=== PATIENT | male | born 1955 | race Caucasian/White ===

== ENCOUNTER 2017-06-10 21:57 | Observation (INO) ==
--- NOTE | 2017-06-10 23:33 | Emergency Department Note ---
SOB HPI - General Chief Complaint: Shortness of Breath/Dyspnea Stated Complaint: Breathing Difficulty Time Seen by Provider: 06/10/17 22:05 Mode of arrival: ambulatory - History of Present Illness Lung biopsy earlier today. Presents with sudden sharp right chest pain and shortness of breath. Severe, worse with movement and inspiration. No comfortable position. - Related Data Home Medications Medication Instructions Recorded Confirmed clotrimazole 10 mg kwesi 10 mg MUCOUS MEM TID 07/06/15 06/10/17 fentanyl 50 mcg/hr transdermal 1 patch TRANSDERMA Q24H patch 07/06/15 06/10/17 patch fluticasone 50 mcg/actuation nasal 1 spray INTRANASAL QDAY 07/06/15 06/10/17 spray,suspension food supplement, lactose-reduced 1 each PO .QOD ml 07/06/15 06/10/17 0.05 gram-1.5 kcal/mL oral liquid rutnqi-hgrlorgw-jrfhgem cap PO 07/06/15 07/06/15 5,000-17,000-27,000 unit capsule,delayed rel nystatin 100,000 unit/mL oral 4 ml BUCCAL QID ml 07/06/15 06/10/17 suspension omeprazole 40 mg capsule,delayed 40 mg PO QDAY 07/06/15 06/10/17 release oxycodone-acetaminophen 5 mg-325 1 tab PO Q6H 07/06/15 06/10/17 mg tablet sucralfate 1 gram tablet 1 g PO QID 07/06/15 06/10/17 testosterone 1 % (50 mg/5 gram) 2 packet TRANSDERMA QAM 07/06/15 06/10/17 transdermal gel packet magnesium oxide 400 mg capsule 400 mg PO QDAY 06/20/16 06/10/17 megestrol 400 mg/10 mL (40 mg/mL) 400 mg PO QDAY ml 06/20/16 06/10/17 oral suspension meloxicam 7.5 mg tablet 7.5 mg PO QDAY 06/20/16 06/10/17 triamcinolone acetonide 0.1 % 1 applic TOPICAL QDAY 06/20/16 06/10/17 topical cream Previous Rx's Medication Instructions Recorded Enoxaparin [Lovenox] 60 mg SQ BID #20 syringe 06/09/17 Allergies Allergy/AdvReac Type Severity Reaction Status Date / Time No Known Drug Allergies Allergy Verified 06/10/17 09:17 Review of Systems All systems ED: reviewed and negative except as stated. Past Medical History - Past Medical History Attestation: Yes: The following information was validated with the patient. Medical history: Reports: other (Lung tumor with active workup). Denies: cancer , CVA, hypertension, myocardial infarction, thyroid disease - Social History smoking status: Never smoker Alcohol use: Reports: None Drug use: Reports: none. Denies: marijuana Physical Exam Limitations: no limitations General appearance: alert, anxious, cachectic, in distress Head: atraumatic Eye: Present: normal appearance ENT: normal exam Neck: Present: normal inspection, trachea midline. Absent: lymphadenopathy Chest: Present: normal inspection. Absent: symmetric chest wall rise Respiratory: Present: other (dimished breath sounds on the right) Course Vital Signs Temperature 97.6 F 06/10/17 21:58 Pulse Rate 88 06/10/17 21:58 Respiratory Rate 26 H 06/10/17 21:58 Blood Pressure 139/87 06/10/17 21:58 Pulse Oximetry (%) 100 06/10/17 21:58 Temperature 97.6 F 06/10/17 21:58 Pulse Rate 65 06/11/17 00:26 Respiratory Rate 26 H 06/10/17 21:58 Blood Pressure 105/75 06/11/17 00:00 Pulse Oximetry (%) 95 06/11/17 00:26 Shortness of Breath/Dyspnea - Radiology Data Radiology results reviewed: Yes I reviewed the patient's radiology results. Chest CT with clear pneumothorax, extensive; slight midline shift Disposition Pt seen by [facility]/PA only: No Clinical Impression: Pneumothorax after biopsy Summary: Dr. Asencio, surgery willing to the bedside, admitting for observation, deferring chest tube at this time Disposition: Xfer As Inpt ([facility]) Condition: Fair Referrals: Ivonne Calderon ARNP [Primary Care Provider] -
[2017-06-11] MEDS ORDERED: HYDROmorphone 2 MG/ML VIAL IV ONE (00:10)
[2017-06-11] MEDS ORDERED: LORazepam 2 MG/ML VIAL IV ONE (00:10)
--- NOTE | 2017-06-11 00:24 | General Surg History&Physical ---
History of Present Illness Patient information: Note initiated : 06/11/17 at 12:20 am Service Date, if different from initiated Date: [] Patient: Edil Lerner 61 y/o M admitted on for Breathing Difficulty. Chief Complaint: [] HPI: Mr. Lerner is a 61 year old M presents to the emergency room with increasing shortness of breath and chest pain. Patient underwent CT-guided biopsy of the large right hilar mass by radiology June 04. 3 core biopsies were done. He was monitored postprocedure and follow-up did not reveal any pneumothorax. He was finally discharged home. After getting home he developed increasing shortness of breath and more severe pleuritic chest pain. He return to the emergency room where a CT of the chest confirmed that he had a significant pneumothorax. I was asked to see the patient to place a tube thoracostomy. He was extremely anxious and complaining of more pain and shortness of breath. The pneumothorax was stable after 12 hours and the patient was fully anticoagulated on 60 mg of Lovenox. He was given Ativan for anxiety and monitored for pain. His breathing became much easier and he had good breath sounds bilaterally with oxygen saturation 100% on 2 L of oxygen by nasal cannula. It is my impression that he will be stable for observation and I will get follow-up x-rays in the morning and if he has some progression he can have a Pleurx catheter placement rather than a tube thoracostomy since he needs to be on continued anticoagulation because of the pulmonary emboli in his right lung. Review of Systems - Constitutional fatigue, lethargy, weakness, weight loss - Cardiovascular chest pain at rest, chest pain with activity, dyspnea on exertion, lightheadedness - Respiratory pain on inspirtation, pain with cough - Gastrointestinal no diarrhea, no heartburn, no loose stools, no nausea - Musculoskeletal arthralgias, myalgias, neck pain, stiffness - Integumentary no lesions, no pruritus, no rash - Neurological tremor(s), weakness, no confusion, no dizziness, no headache(s) - Psychiatric anxiety, depression - Endocrine no palpitations, no polydipsia, no polyuria - Hematologic/Lymphatic other (on Lovenox 60 mg subcutaneous every 12 hours), no easy bleeding, no easy bruising, no lymphadenopathy - Allergic/Immunologic no tongue swelling, no throat swelling, no seasonal rhinorrhea, no uticaria, no wheezing, no lip swelling Past History Past medical history: history of pancreatitis History of chronic narcotic use Pulmonary emboli) Past surgical history: no operative procedure Past family history: father pancreatic cancer Past social history: former smoker Former alcohol user Denies drug use Medications and Allergies Home Medications Medication Instructions Recorded Confirmed Type fentanyl 50 mcg/hr transdermal 1 patch TRANSDERMA Q24H patch 07/06/15 06/11/17 History patch fluticasone 50 mcg/actuation nasal 1 spray INTRANASAL QDAY 07/06/15 06/10/17 History spray,suspension nystatin 100,000 unit/mL oral 4 ml BUCCAL QID ml 07/06/15 06/10/17 History suspension omeprazole 40 mg capsule,delayed 40 mg PO QDAY 07/06/15 06/11/17 History release oxycodone-acetaminophen 5 mg-325 1 tab PO Q6H 07/06/15 06/11/17 History mg tablet sucralfate 1 gram tablet 1 g PO QID PRN 07/06/15 06/11/17 History testosterone 1 % (50 mg/5 gram) 2 packet TRANSDERMA QAM 07/06/15 06/11/17 History transdermal gel packet magnesium oxide 400 mg capsule 400 mg PO QDAY 06/20/16 06/11/17 History megestrol 400 mg/10 mL (40 mg/mL) 400 mg PO QDAY ml 06/20/16 06/11/17 History oral suspension meloxicam 7.5 mg tablet 7.5 mg PO QDAY 06/20/16 06/10/17 History triamcinolone acetonide 0.1 % 1 applic TOPICAL QDAY 06/20/16 06/11/17 History topical cream Enoxaparin [Lovenox] 60 mg SQ BID #20 syringe 06/09/17 06/11/17 Rx Allergies Allergy/AdvReac Type Severity Reaction Status Date / Time No Known Drug Allergies Allergy Verified 06/10/17 09:17 Exam Temp Pulse Resp BP Pulse Ox 97.6 F 62 26 H 105/67 95 06/10/17 21:58 06/10/17 23:54 06/10/17 21:58 06/10/17 23:00 06/10/17 23:54 - General physical appearance well developed, well nourished, moderate distress, moderate pain, cachectic, chronically ill - Eyes PERRL, normal ocular movement - ENT normal pinna, normal nares, normal mucosa, no hearing loss, no congestion - Head Head exam IM: Present: atraumatic, normocephalic - Neck no masses, no bruits, trachea midline, no lymphadectomy, no venous distension - Cardiovascular Cardiovascular exam IM: Present: normal rate and rhythm, RRR, +S1, +S2, tachycardia. Absent: JVD - Respiratory other (splinting with respirations bilaterally; slight decreased breath sounds right side as compared to the left but with good excursions of right chest wall ; no pleural rub noted) - Abdomen Abdomen: Present: soft, non tender, bowel sounds. Absent: distended Hernia: Present: none - Genitourinary Present: normal penis with no external lesions - Integumentary Present: no rash, no growths, no abnormal pigmentation - Neurologic Present: normal coordination, normal sensation - Musculoskeletal Present: normal gait, normal posture - Psychiatric Present: oriented to time, oriented to person, oriented to place, speech is normal, memory intact Assessment and Plan (1) Pneumothorax after biopsy pneumothorax appears stable will observe and recheck in a.m since he needs anticoagulation for the pulmonary emboli he may benefit from a pleurex catheter with aspiration rather a standard thoracostomy tube Status: Acute (2) Lung mass Status: Acute (3) Pulmonary emboli Status: Acute (4) Cachexia Status: Chronic
[2017-06-11] MEDS ORDERED: LIDOCAINE 1% 20 ML VIAL SQ ONE (01:07)
[2017-06-11] MEDS ORDERED: LORazepam 2 MG/ML VIAL IV PRN (01:38)
[2017-06-11] MEDS ORDERED: 0.9 % SODIUM CHLORIDE 1,000 ML IV SCH (01:38)
[2017-06-11] MEDS ORDERED: ONDANSETRON 4 MG/2 ML VIAL IV PRN (01:38)
[2017-06-11] MEDS ORDERED: HYDROmorphone 2 MG/ML VIAL ONE (01:46)
[2017-06-11] MEDS: HYDROmorphone 2 MG/ML VIAL IV PRN ×2 (02:00→04:36)
[2017-06-11] MEDS: HYDROmorphone 2 MG/ML VIAL ONE ×2 (04:35→04:38)
[2017-06-11 05:19] LABS: Mean Cell Volume 91.4 fL (80.0-100.0); Mean Corpuscular HGB Conc 33.1 g/dL (31.0-36.0); Mean Corpuscular Hemoglobin 30.2 pg (26.0-34.0); Platelet Count 285 K/mcL (140-440); RBC 4.51 M/mcL (4.50-5.90); Red Cell Distribution Width 14.2 % (11.5-14.5)
[2017-06-11 05:41] LABS: ALT/SGPT 21 U/l (0-40); Albumin 3.7 gm/dL (3.2-5.2); Albumin/Globulin Ratio 1.5 (1.0-2.3); Alkaline Phosphatase 59 U/L (39-117); Bilirubin,Direct 0.3 mg/dL (0.0-0.3); Blood Urea Nitrogen 21 mg/dl (6-20); Gamma Glutamyl Transpeptidase 16 U/L (8-61); Uric Acid 3.4 mg/dL (2.5-8.0)
[2017-06-11] MEDS ORDERED: KETOROLAC 30 MG/ML VIAL IV SCH (06:00)
[2017-06-11] MEDS ORDERED: 0.9 % SODIUM CHLORIDE 10 ML SYRINGE IV SCH (06:00)
--- NOTE | 2017-06-11 06:01 | XRay Report ---
CLINICAL INFORMATION: Right pneumothorax following percutaneous biopsy right upper lobe mass - follow-up COMPARISON: 06/10/2017 1613 hours FINDINGS: 20% right pneumothorax show slight increase. Right hilar mass and contiguous adenopathy right hilum/mediastinum is again noted. Moderate right upper lobe infiltrate shows slight worsening now with extension into the periphery. Minor airspace disease in the right infrahilar region - likely atelectasis IMPRESSION: 1. Slight progression in right pneumothorax approximately 20%. Small bore chest tube will be inserted 2. Right hilar mass with contiguous right hilar/mediastinal adenopathy again noted. Postobstructive right upper lobe infiltrate shows slight progression 3. New small infiltrate or atelectasis developing in the right base Interpreted and Authenticated by: Francisco J Rendon 06/11/17
[2017-06-11] MEDS ORDERED: oxyCODONE/APAP 5/325MG TABLET PO PRN (06:19)
[2017-06-11] MEDS ORDERED: SUCRALFATE 1 GM TABLET PO SCH (07:30)
[2017-06-11] MEDS ORDERED: PANTOPRAZOLE 40 MG TABLET PO SCH (07:30)
[2017-06-11 08:05] LABS: Lymphocytes % 23 % (15-49); Monocytes % (Manual) 9 % (1-12); Platelet Estimate NORMAL (NORMAL); RBC Morphology NORMAL (NORMAL); Segmented Neutrophils % 68 % (38-78)
--- NOTE | 2017-06-11 08:30 | XRay Report ---
CLINICAL INFORMATION: 30% right pneumothorax approximately [address]-guided right lung biopsy. Increasing right chest pain and dyspnea TECHNIQUE: Procedure and risks including the possibility of bleeding, infection and worsening pneumothorax were explained to the patient. He understood and wished to proceed. With the patient in supine on the fluoroscopy table, the skin overlying the right anterior second intercostal space at mid clavicular line was fluoroscopically marked, prepped and locally anesthetized to the pleural level with 1% lidocaine using a 25-gauge needle. A 10 Georgian small bore chest tube mounted over a trocar was then advanced under fluoroscopic guidance into the pleural space. Approximately 200 cc of air was evacuated and the tube was left to Heimlich valve. The tube and valve was secured to the skin with suture and tape. Post procedure fluoroscopy shows the right lung reexpanded with small residual right apical pneumothorax IMPRESSION: Successful placement of 10 Georgian small bore chest tube in the right pleural space with evacuation of 200 cc of pleural air resulting in near complete reexpansion of the right lung. No apparent complication. Patient will return in two days on June 13 at 9:00 AM. At that time, the valve will be test closed for one hour and the film will be repeated one hour. The lung is reexpanded the tube will then be removed. He was given a outpatient prescription for Dilaudid n anticipation of right-sided pleural pain as result of tubular irritation. Interpreted and Authenticated by: Francisco J Rendon 06/11/17
--- NOTE | 2017-06-11 08:40 | Cat Scan Report ---
CLINICAL INFORMATION: Increasing dyspnea and right-sided chest pain approximately [address]-guided previous right lung biopsy. Known pneumothorax on follow-up post procedure plain film COMPARISON: Prebiopsy chest CT from yesterday 06/09/2017 TECHNIQUE: 0.625 mm axial slices were obtained from the lung apices through the bases without intravenous contrast. 2.5 mm Sagittal, coronal and axial reformatted images were processed and reviewed at bone, lung and soft tissue windows. 7 mm axial MIP images were also reconstructed to optimize pulmonary nodule detection.The exam was performed using radiation dose optimization techniques including, but not limited to, automated exposure control, adjustment of the mA and/or kV according to patient size and use of iterative reconstruction technique. FINDINGS: Right-sided pneumothorax estimated to be between 20 and 30% seen in the nondependent anterior right thoracic cavity. Only a small right pleural effusion is noted. Large right hilar mass contiguous with massive adenopathy in the right hilum, pericarinal and lower right peritracheal region is again noted. Moderate postobstructive infiltrate in the posterior segment right upper lobe and scattered nodular densities in the remaining right lung are all stable. Small region of subsegmental atelectasis has developed in the posterior right lower lobe with a small simple right pleural effusion. Underlying emphysema changes again noted. The heart is normal in size and configuration. Small pericardial effusion which is unchanged. The noncontrasted thoracic aorta and pulmonary arteries are normal. IMPRESSION: 1. 20% to 30% right pneumothorax which continues to slowly increase following CT-guided right lung biopsy 12 hours prior. A smallbore chest tube will be placed under fluoroscopy. 2. Large right hilar mass, contiguous with massive adenopathy in the right hilum and mediastinum, has now undergone biopsy. Preliminary pathology report was returned as small cell carcinoma. (Personal communication with the pathologist) 3. Moderate consolidation postobstructive infiltrate posterior right lower lobe and scattered nodules within the remaining right upper lobe which are likely metastases are all stable. 4. Subsegmental atelectasis posterior right lower lobe - new. Small simple appearing right pleural effusion Interpreted and Authenticated by: Francisco J Rendon 06/11/17
--- NOTE | 2017-06-11 08:46 | XRay Report ---
CLINICAL INFORMATION: Follow right pneumothorax after small bore chest tube placement COMPARISON: 06/10/2017 2359 hours.. FINDINGS: Film taken upright position shows a small residual right apical pneumothorax - less than 5%. Chest tube has been inserted through the right anterior second intercostal mid clavicular line: the tip overlies the lateral right pleural space. Large right hilar mass contiguous with a large right hilar and mediastinal lymph nodes and a postobstructive infiltrate in right upper lobe are all stable. Right basilar atelectasis is resolved. Tiny right pleural effusion is unchanged. IMPRESSION: Following placement of small bore right-sided chest tube, there is only a small residual right apical pneumothorax. Patient's symptoms of chest pain and dyspnea resolved. Right hilar mass, right hilar adenopathy, right mediastinal adenopathy with postobstructive right upper lobe infiltrate - all stable. Preliminary verbal pathology report revealed small cell lung carcinoma. Interpreted and Authenticated by: Francisco J Rendon 06/11/17
[2017-06-11] MEDS ORDERED: DOCUSATE SODIUM 100 MG CAPSULE PO SCH (09:00)
[2017-06-11] MEDS ORDERED: ENOXAPARIN 60 MG/0.6 ML SYRINGE SQ SCH (09:00)
[2017-06-11] MEDS ORDERED: fentaNYL 50 MCG PATCH TOPICAL SCH (10:00)
== END 2017-06-11 11:15 | disposition home or self-care (01) ==
LOC: ED 21:57 → ICU 21:57
PROVIDERS: ADMIT Family Medicine Adult Medicine; ATTEND Family Medicine Adult Medicine